=== PATIENT | female | born 1930 | race Caucasian/White ===

== ENCOUNTER 2017-02-10 07:51 | Inpatient (IN) | payer MEDICARE, OTHER ==
--- NOTE | 2017-02-10 08:12 | ED.PDOC ---
History of Present Illness - General Chief Complaint: Cardiovascular Problem Stated Complaint: weakness,heart fluttering Time Seen by Provider: 02/10/17 07:56 Source: patient, RN notes reviewed, Vital Signs reviewed, family Exam Limitations: no limitations - History of Present Illness Initial Comments: Patient reports that for the past couple of days she has felt weak, with no energy. Chest fluttering and a "lifeless" feeling in her lower chest. + SOB. Symptoms are worse when she is up moving around. Can't walk far without having to stop and rest. Symptoms get better with rest. Similar episode in the past when she was anemic requiring a blood transfusion. Timing/Duration: days, intermittent Severity: moderate Location: central Activities at Onset: activity Prior Chest Pain/Cardiac Workup: no prior chest pain, no prior cardiac workup Improving Factors: rest Worsening Factors: movement Nitro Today/Relief: no nitro taken today Aspirin Treatment Today: no aspirin today Associated Symptoms: shortness of breath, weakness Allergies/Adverse Reactions: Allergies NO KNOWN ALLERGY Allergy (Unverified 02/20/13 10:33) Home Medications: Ambulatory Orders NK [NK] 02/10/17 Review of Systems - Review of Systems Constitutional: States: weakness. Denies: chills, diaphoresis, fever EENTM: States: no symptoms reported Respiratory: States: short of breath. Denies: cough Cardiology: States: palpitations. Denies: chest pain, edema, syncope Gastrointestinal/Abdominal: States: no symptoms reported. Denies: abdominal pain, nausea Musculoskeletal: States: muscle pain - posterior shoulder - muscles spasms Skin: States: no symptoms reported Neurological: States: no symptoms reported. Denies: headache, numbness, paresthesia, pre-existing deficit, tingling, tremors Endocrine: States: no symptoms reported Hematologic/Lymphatic: States: no symptoms reported Past Medical History (General) - Patient Medical History Hx Seizures: No Hx Stroke: No Hx Asthma: No Hx of COPD: Yes Hx Cardiac Disorders: No Hx Congestive Heart Failure: No Hx Pacemaker: No Hx Hypertension: Yes Hx Diabetes: No Hx MRSA: No Surgical History: cholecystectomy - Vaccination History Hx Influenza Vaccination: No Hx Pneumococcal Vaccination: Yes - Social History Hx Tobacco Use: Yes Hx Alcohol Use: No Hx Substance Use: No Hx Physical Abuse: No Hx Emotional Abuse: No Family Medical History - Family History Mother Family History: Unknown Living Status: Hx Family Asthma: No Hx Family Congestive Heart Failure: No Hx Family Hypertension: No Hx Family Stroke: No Hx Cardiac Disease: No Hx Family Diabetes: No Hx Family Cancer: No Physical Exam - Physical Exam General Appearance: Alert, Comfortable, No apparent distress, Well Developed, Well Groomed, Well Hydrated, Well Nourished Neck: non-tender, supple Respiratory: chest non-tender, lungs clear, normal breath sounds, no respiratory distress, no accessory muscle use Cardiovascular/Chest: normal peripheral pulses, no edema, no gallop, no JVD, no murmur, irregularly irregular Peripheral Pulses: radial,right: 2+, radial,left: 2+, posterior tibialis,right: 2+, posterior tibialis,left: 2+ Gastrointestinal/Abdominal: normal bowel sounds, non tender, soft, no organomegaly, no pulsatile mass Extremity: normal range of motion, non-tender, normal inspection, no pedal edema Neurologic: no motor/sensory deficits, alert, normal mood/affect, oriented x 3 Skin Exam: normal color, warm/dry Progress - Results/Orders Results/Orders: Laboratory Tests 02/10/17 02/10/17 02/10/17 08:23 08:23 08:53 WBC 6.9 RBC 3.76 L Hgb 9.2 L Hct 28.7 L MCV 76.3 L MCH 24.4 L MCHC 32.2 L RDW 17.5 H Plt Count 377 MPV 9.9 Absolute Neuts (auto) 3.80 Absolute Lymphs (auto) 2.40 Absolute Monos (auto) 0.50 Absolute Eos (auto) 0.10 Absolute Basos (auto) 0.10 Neutrophils % 54.3 Lymphocytes % 34.6 Monocytes % 7.9 Eosinophils % 1.5 Basophils % 1.7 Sodium 139 Potassium 3.6 Chloride 106 Carbon Dioxide 25 Anion Gap 11.6 L BUN 10 Creatinine 0.74 BUN/Creatinine Ratio 13.5 Random Glucose 88 Serum Osmolality 276.0 Calcium 8.7 Total Bilirubin 1.3 H AST 19 ALT 13 Alkaline Phosphatase 43 Creatine Kinase 37 CK-MB (CK-2) 1.3 CK-MB (CK-2) % Not Reportable Troponin I 0.03 B-Natriuretic Peptide 394.0 H* Serum Total Protein 6.7 Albumin 4.1 Globulin 2.6 Albumin/Globulin Ratio 1.6 - EKG/XRAY/CT EKG: Tachy, Fibrillation, ST depression - in leads II, III, AvF, V4-6 XRAY: chest - mild bilateral effusions with central congestion Departure - Departure Clinical Impression: Atrial fibrillation with rapid ventricular response Time of Disposition: 09:50 Disposition: Admit Patient Condition: Fair Departure Forms: ED Discharge - Pt. Copy, Patient Portal Self Enrollment Home Medications: Ambulatory Orders NK [NK] 02/10/17 Decision To Admit - Decistion To Admit Decision to Admit Reason: Admit from ER - New onset Atrial Fib Decision to Admit Date: 02/10/17 Decision to Admit Time: 09:50
--- NOTE | 2017-02-10 08:35 | RAD ---
SINGLE VIEW CHEST X-RAY. 02/10/2017 8:09 AM CDT INDICATION: MAIN TECHNIQUE: Single frontal view of the chest was performed. COMPARISON: Chest x-ray 02/20/2013 CT abdomen pelvis 04/06/2015 FINDINGS: Hyperinflation lungs. Trace bilateral pleural effusions. Biapical scarring. Mildly prominent interstitial opacities. Bilateral prominent hilar vasculature. Curvilinear opacity overlying the left lower thorax was present in 2012 and appears to correspond to diaphragmatic eventration on CT. The cardiomediastinal silhouette is mildly enlarged, unchanged. Mild atherosclerosis of the thoracic arch. Osseous structures are unchanged. The visualized abdomen is unremarkable. IMPRESSION: Trace bilateral effusions with mild central venous congestion. Electronically signed by: Nima Rudolph MD 02/10/2017 8:34 AM CDT
--- NOTE | 2017-02-10 10:48 | HP ---
SUPERVISING PHYSICIAN: Jese Rodrigues M.D. CHIEF COMPLAINT: Palpitations. HISTORY OF PRESENT ILLNESS: Ms. Kapadia is an 86 year-old female patient that presented to the Emergency Room today complaining of the last several days in the past week she has felt weak and has noted that she has had palpitations in her chest that she associated with shortness of breath. She denies any chest pain. She notes that the symptom seem to worsen when she is up and moving around. EKG in the Emergency Department completed showed the patient to be in atrial fibrillation with a rapid ventricular heart rate of approximately 140. Hemodynamically she was stable with blood pressure initially of 113/65 satting 95% on room air with respirations of 16 with a temperature 96.9. Initial laboratory studies showed a normal troponin of 0.03 and electrolytes to be within normal limits. She had a slightly elevated BNP of 394 and was mildly anemic with hemoglobin of 9.2 and 28.7. Given the patient 's symptomology and onset of new atrial fibrillation with no history, the patient was given Cardizem in the Emergency Department for a total of 5 mg which resulted in good ventricular control after which time the patient remained hemodynamically stable. The patient is now to be admitted to the Medical/Surgical floor for continued treatment, evaluation and close cardiac telemetry monitoring. PAST MEDICAL HISTORY: 1. Hypertension not currently on medications. 2. Chronic obstructive pulmonary disease. 3. Diverticulosis. 4. Osteoporosis. PAST SURGICAL HISTORY: 1. Cholecystectomy in 2009. 2. Hysterectomy in 1963. 3. Bilateral cataract removal in 2010. 4. Oophorectomy in 2012 with a benign mass. CURRENT MEDICATIONS: She currently takes no home medications, but in the past she has taken: 1. Lisinopril 40 mg daily. 2. Fosamax 70 mg weekly. 3. Aspirin daily, however she has taken herself off all medications. ALLERGIES: NO KNOWN DRUG ALLERGIES. FAMILY HISTORY: Positive for coronary artery disease. SOCIAL HISTORY: The patient lives alone. She is a current smoker, approximately 1 pack per week. She denies any alcohol or illicit drug use. She is and lives in [place], [place]. REVIEW OF SYSTEMS: CONSTITUTIONAL: Denies any chills, fever or diaphoresis. HEENT: Denies any nasal congestion, headaches or vision changes. RESPIRATORY: Noted mild cough that is nonproductive. As noted in the history of present illness, shortness of breath with any exertional effort. CARDIOVASCULAR: As noted in the history of present illness, palpitations but denies any chest pains, edema or any syncopal episodes. GASTROINTESTINAL: Denies any abdominal pains, nausea, vomiting or bowel habit changes. GENITOURINARY: Denies any dysuria, hematuria or other urinary symptoms. NEUROLOGIC: Denies any headaches, numbness, paresthesias, tremors or syncopal episodes. PHYSICAL EXAMINATION: VITAL SIGNS: Initially in the Emergency Department showed pulse 128, blood pressure 122/67, respirations 20, satting 97% on room air. After 5 mg of Cardizem and prior to admission to the Medical/Surgical floor, the patient's pulse was 70 with blood pressure 105/66, respirations 18. She was satting 95% on room air with admission temperature 97.8. Admission weight 53.6 kg. GENERAL: On admission to the Medical/Surgical floor, the patient is calm. Appears to be in no acute distress. She is well nourished and well hydrated. HEENT: Tympanic membranes are clear bilaterally. Oropharynx is pink and moist without any lesions. NECK: No jugular venous distention. Neck is supple, non-tender. CHEST: Lungs are clear to auscultation bilaterally without any rhonchi, wheezing or rales. CARDIOVASCULAR: Slightly irregular rate and rhythm with no appreciable murmurs , gallops, or rubs. ABDOMEN: Soft, non-tender. Positive bowel sounds. EXTREMITIES: No clubbing, cyanosis or edema. NEUROLOGIC: Cranial nerves II-XII are grossly intact. Facial features are symmetrical. Extraocular movements are within normal limits. There is no nystagmus noted. There are no discernible motor or sensory deficits. She is alert and oriented times three. LABORATORY: White count on admission was 6.9, hemoglobin 9.2, hematocrit 28.7, platelet count 377,000. RBC indices indicate a microcytic hypochromic presentation. Differential is within normal limits. Coagulation studies show a normal PT and PTT. Chemistries show normal electrolytes with potassium 3.6, magnesium was pending. Liver functions just showed a slightly elevated total bilirubin of 1.3, BUN 10, creatinine 0.74. Initial cardiac enzymes showed troponin 0.03 with BNP of 394. Urinalysis: Dipstick showed 15 of ketones with trace amount of lysed blood, positive nitrites, negative leukocyte esterase. Microscopic revealed 2+ bacteria, otherwise was within normal limits. MICROBIOLOGY: Urine culture is pending. RADIOLOGY: Chest x-ray in the Emergency Department prior to admission showed trace of bilateral effusion which mild central venous congestion per radiology interpretation. 12-lead EKGs, initial showed atrial fibrillation with rapid ventricular response at 142. After 5 mg of Cardizem, the patient converted to a controlled ventricular rate. Still appears to be in atrial fibrillation. No ST changes or T wave inversions were noted to indicate ischemic event. ASSESSMENT: 1. New onset atrial fibrillation with rapid ventricular response, unknown duration with the patient reporting symptomology of over a week with the patient getting ventricular control with Cardizem. 2. Elevated BNP with no previously mentioned history of congestive heart failure with review of chart showing last echocardiogram in 2009 with an ejection fraction of 65%, however radiographic studies indicate some mild central vascular congestion and the patient has a significant amount of exertional dyspnea likely secondary to underlying new onset of atrial fibrillation with rapid ventricular response. 3. History of hypertension with the patient taking her self off medications. 4. Chronic obstructive pulmonary disease in a chronic smoker with evidence of exacerbation. 5. History of diverticulosis. 6. Osteoporosis. 7. Chronic tobacco abuse. 8. Urinary tract infection with cultures pending. 9. Anemia with a microcytic hypochromic presentation likely iron deficiency anemia with testing pending. PLAN: The patient will be admitted to the Medical/Surgical floor and started on telemetry for close monitoring. Given that she has a new onset of atrial fibrillation, she will need an echocardiogram at some point. Until then, will start her on rate control medicine to include beta karan with Metoprolol low dose as there is a concern for underlying congestive heart failure. She will be started on anticoagulation with Lovenox 1 mg per kg and a loading dose of Warfarin 5 mg, and close monitoring of her INR with bridging to Coumadin prior to discharge. In regards to the urinary tract infection, the patient has been started on Rocephin awaiting final culture results at which time will target antibiotic therapy accordingly. Will anticipate length of stay to be at least 2 to 3 days depending on the patient's ability to become therapeutic with her Warfarin. Once the patient is stable enough to be discharged, she will need close clinical followup with Dr. Orta and arrangements made for an echocardiogram to further rule out any ventricular thrombus. Will plan to repeat laboratory studies in the morning along with a PT and INR, CBC, CMP and cardiac enzymes again at 6 hours and in the morning. In regards to the anemia, will do occult bloods and monitor closely with a repeat CBC. The patient will need a workup in the outpatient setting. Will consider starting the patient on some iron therapy while in the hospital. Will plan to order laboratory studies for anemia panel to further investigate for iron deficiency anemia as well as get stool occult bloods times 3. Until then, will continue to monitor on telemetry closely and treat appropriately. #[id number] [facility]
[2017-02-10] MEDS ORDERED: WARFARIN SODIUM 5 MG TAB PO ONE (13:14)
[2017-02-10] MEDS ORDERED: ACETAMINOPHEN 325 MG TAB PO PRN (13:17)
[2017-02-10] MEDS ORDERED: SODIUM CHLORIDE 0.9% (FLUSH) 10 ML SYG IV PRN (13:17)
[2017-02-10] MEDS ORDERED: NITROGLYCERIN 0.4 MG 25 EA TAB SL PRN (13:17)
[2017-02-10] MEDS ORDERED: ASPIRIN (CHEWABLE) 81 MG TAB PO ONE (13:17)
[2017-02-10] MEDS ORDERED: ENOXAPARIN SODIUM 60 MG/0.6 ML SYG SUBCU ONE (13:19)
[2017-02-10] MEDS ORDERED: METOPROLOL TARTRATE 25 MG TAB ONE (13:19)
[2017-02-10] MEDS ORDERED: ASPIRIN TABLET 325 MG TAB ONE (13:23)
[2017-02-10] MEDS ORDERED: ASPIRIN EC 81 MG TAB PO ONE (13:25)
[2017-02-10] MEDS: METOPROLOL TARTRATE 25 MG TAB PO SCH ×2 (13:27→17:09)
[2017-02-10] MEDS: ENOXAPARIN SODIUM 60 MG/0.6 ML SYG SUBCU SCH ×2 (13:28→20:54)
[2017-02-10] MEDS: IV SET AND CAP CHANGE INJ INJ SCH (13:46)
[2017-02-10] MEDS ORDERED: SODIUM CHL 0.9% 50ML MIN-BAG+ 50 ML IVPB ONE (17:07)
[2017-02-10] MEDS ORDERED: cefTRIAXone SODIUM 1 GM VIAL ONE (17:07)
[2017-02-10] MEDS: cefTRIAXone SODIUM 1 GM in SODIUM CHL 0.9% 50ML MIN-BAG+ 50 ML IVPB SCH (17:09)
--- NOTE | 2017-02-10 18:04 | PCM.CORE ---
Physician DVT/VTE - Nurse DVT Assessment & Total Each Risk Factor Represents 3 Points: Age over 75 years Each Risk Factor Represents 1 Point: Hx of smoking past year Each Risk Factor is 1 Point: Serious Lung disease (pnemonia <1month, COPD, emphysema,etc) DVT Assessment Score: 5 - 5 or more Very High Risk Treatments: Early Ambulation *, Sequential Compression Device Pharmacological: Warfarin daily
[2017-02-10] MEDS: SODIUM CHLORIDE 0.9% (FLUSH) 10 ML SYG IV SCH (20:54)
[2017-02-11] MEDS ORDERED: TEMAZEPAM 15 MG CAP PO PRN (00:43)
[2017-02-11] MEDS: ENOXAPARIN SODIUM 60 MG/0.6 ML SYG SUBCU SCH (09:01)
[2017-02-11] MEDS ORDERED: diphenhydrAMINE HCL 50 MG/ML VIAL IV ONE (09:04)
[2017-02-11] MEDS ORDERED: ACETAMINOPHEN 325 MG TAB PO ONE (09:04)
[2017-02-11] MEDS ORDERED: FUROSEMIDE INJ 20 MG/2 ML VIAL IV ONE (09:04)
[2017-02-11] MEDS: SODIUM CHLORIDE 0.9% (FLUSH) 10 ML SYG IV SCH ×2 (09:05→21:00)
[2017-02-11] MEDS: ASPIRIN TABLET 325 MG TAB PO SCH (09:05)
[2017-02-11] MEDS ORDERED: SODIUM CHLORIDE 0.9% 500ML 500 ML IVS SCH (09:30)
--- NOTE | 2017-02-11 17:48 | CT ---
EXAM: Abdomen w/Contrast CLINICAL INDICATION: 86-year-old female with acute anemia. Follow-up CT 02/2015 2 cm lesion at the ileum. COMPARISON: 04/06/2015 CT abdomen and pelvis EXAMINATION: CT of the abdomen and pelvis was performed following intravenous administration of contrast. Oral contrast was not administered. Multiplanar reformatted images were provided. This exam was performed according to our departmental dose optimization program which includes use of automated exposure control, adjustment of the mA and/or kV according to patient size and/or use of iterative reconstruction technique. FINDINGS: Chest: Evaluation through the lung bases reveals no focal opacity, pleural effusion or pneumothorax. Heart size is within normal limits. No pericardial effusion. Abdomen and pelvis: The liver, pancreas, spleen, bilateral kidneys and bilateral adrenal glands are within normal limits. Surgical clips present at the level of the gallbladder fossa status post cholecystectomy. Minimal intra and extrahepatic biliary dilation, a finding which appears to be stable since the previous examination and may be seen in the setting of prior cholecystectomy. The vessels reveal dense atherosclerotic calcification otherwise patent and normal in caliber. No abdominopelvic lymph nodes are noted to be pathologically enlarged by CT measurement criteria. Severe diverticular disease without findings to suggest diverticulitis. The bowel is within normal limits with extensive contrast material and fecal debris present throughout the large bowel. There is no abnormal bowel wall thickness or bowel dilation. No free air. No free abdominopelvic fluid collections. The appendix is within normal limits. The osseous structures reveal diffuse demineralization and degenerative change. Multilevel endplate compression deformities stable in comparison to the previous examination dated 04/06/2015 present involving the T11 and L1 vertebral levels. No new compression deformity clearly identified. IMPRESSION: 1. No specific acute intra-abdominal findings are noted to suggest etiology of the patient's symptoms. 2. Severe diverticular disease without findings to suggest diverticulitis. 3. As clinically questioned, 2 cm lesion of the ileum is not clearly visualized on the current examination, however not visualized on the current examination secondary to lack of oral contrast. Further evaluation with small bowel follow-through, six six lower GI or direct visualization may be considered. Electronically signed by: Yenny Goodman MD 02/11/2017 5:47 PM CDT
[2017-02-11] MEDS ORDERED: SODIUM CHL 0.9% 50ML MIN-BAG+ 50 ML IVPB ONE (18:04)
[2017-02-11] MEDS ORDERED: cefTRIAXone SODIUM 1 GM VIAL ONE (18:04)
[2017-02-11] MEDS: cefTRIAXone SODIUM 1 GM in SODIUM CHL 0.9% 50ML MIN-BAG+ 50 ML IVPB SCH (18:24)
--- NOTE | 2017-02-11 21:53 | PN ---
DATE: 02/11/17 SUPERVISING PHYSICIAN: Jese Rodrigues M.D. SUBJECTIVE: The patient has been without any chest pains through the night. She continues to have shortness of breath. She has only had 1 episode of diarrhea and remains afebrile. OBJECTIVE: VITAL SIGNS: Temperature 98.2, pulse 54, blood pressure 104/62, respirations 18. She is satting 96% on room air. I's and O's show a positive balance of 270 with 420 in and 150 out. She has had 1 bowel movement. Weight 53.5 kg. GENERAL: The patient appears somewhat pale but she appears to be in no acute distress. Very pleasant. She is actually sitting on the edge of the bed and alert. CHEST: Lungs are clear to auscultation bilaterally. HEART: Regular rate and rhythm today with a bradycardic rhythm noted on bedside telemetry. There are no gallops or rubs noted. ABDOMEN: Soft, non-tender. Positive bowel sounds. EXTREMITIES: No clubbing, cyanosis or edema. NEUROLOGIC : She is alert and oriented times three. LABORATORY: CBC shows a slight leukocytosis compared to admission, it is up to 11.2. Hemoglobin has significantly dropped and is from 9.2 down to 7.8 as well as hematocrit dropped to 24.7. She continues to show a microcytic hypochromic RBC indices with platelet count 326,000. Differential today continues to be without a left shift. Reticulocyte count is pending. Coagulation studies this morning showed PT of 13.2 with INR 1.17. Chemistries shows normal electrolytes with potassium 3.7, BUN 12, creatinine 0.75, glucose 92, calcium 8.5. Iron studies indicated an iron of 216, TIBC was 282 with an elevated iron saturation of 76 with a ferritin of 261. Magnesium was 1.9 yesterday. She had a repeat troponin after admission and it did show an elevation up to 0.14, but the patient remained without any significant new complaints and had no chest pains reported. This morning, repeat cardiac enzymes again showed a continuation of elevation of troponin up to 0.35 but normal CPK and CK-MB. She did have 1 occult blood that was positive. A 12-lead EKG repeated this morning showed a sinus bradycardia. MICROBIOLOGY: Urine culture preliminary shows gram-negative rods. Stool culture is pending. Clostridium Difficile toxin A and B was negative for Clostridium Difficile GDH antigen and negative for Clostridium Difficile toxin A and B. RADIOLOGY: Abdominal CT with contrast is pending. ASSESSMENT: 1. Initial admission showed a new onset of atrial fibrillation with rapid ventricular response with the patient having been symptomatic over the last week converting to normal sinus rhythm after a single dose of Cardizem and a beta karan with elevated cardiac enzymes. 2. Elevated troponin felt to be secondary to ischemic event from new onset of atrial fibrillation and rapid ventricular response without any chest pains. 3. Elevated BNP with no mention of history of congestive heart failure with review of chart showing last echocardiogram was performed in 2009 that showed an ejection fraction of 65%, however radiographic studies on admission showed some mild central vascular congestion and the patient had significant exertional dyspnea likely secondary to underlying new onset of atrial fibrillation and rapid ventricular response now having been converted to normal sinus rhythm. 4. History of hypertension with the patient taking herself off medications. 5. Acute on chronic anemia with a microcytic hypochromic RBC presentation and laboratory studies indicating more likely an iron deficiency anemia, although the patient did have 1 positive occult blood. Will need to continue closely monitoring and the patient will be transfused 2 units of packed red blood cells. 6. Chronic obstructive pulmonary disease in a chronic smoker without evidence of exacerbation. 7. History of diverticulosis. 8. Osteoporosis. 9. Chronic tobacco abuse. 10. Urinary tract infection prior to arrival with current culture showing gram- negative rods. PLAN: Will plan to obtain a CT of the abdomen with contrast today. Review of past records showed that she has had similar episodes of anemia in [address] when she had a CT of the abdomen that indicated concerns for a possible small lesion in the ileum. Will continue to follow this with CT findings. She did have a GI consultation on that admission, however since she was discharged at that time she had not had any followup with any medical providers. She was started on anticoagulation last night with Lovenox and Warfarin. This will be stopped given that she has positive occult blood and severe acute anemia. She will remain on aspirin. Will plan to consult with Dr. Barlow tomorrow in regards to elevated troponin and new onset of atrial fibrillation to assist with further management. At some point, she will need an echocardiogram updated. Will plan to transfuse 2 units of packed red blood cells today and repeat a CBC and CMP in the morning. Will anticipate at least an additional 1 to 2 days of admission given the patient's anemia with need for transfusion and close monitoring, and likely at some point will need a GI consultation once again. Once the patient is found to be clinically stable, she can be discharged to continue with additional workups in regards to the anemia and ongoing iron deficiency workup. She will remain on telemetry and close monitoring. Until discharge, will treat appropriately. #[id number] [facility]
[2017-02-12] MEDS: ASPIRIN TABLET 325 MG TAB PO SCH (08:45)
[2017-02-12] MEDS: SODIUM CHLORIDE 0.9% (FLUSH) 10 ML SYG IV SCH ×2 (08:45→21:32)
[2017-02-12] MEDS ORDERED: PANTOPRAZOLE INJECTION 80 MG in SODIUM CHLORIDE 0.9% 100ML 80 ML IVPB ONE (11:59)
[2017-02-12] MEDS ORDERED: SODIUM CHLORIDE 0.9% 100ML 100 ML IVPB ONE (13:33)
[2017-02-12] MEDS ORDERED: PANTOPRAZOLE SODIUM IV 40 MG VIAL ONE (13:33)
[2017-02-12] MEDS ORDERED: SODIUM CHL 0.9% 50ML MIN-BAG+ 50 ML IVPB ONE (16:48)
[2017-02-12] MEDS ORDERED: cefTRIAXone SODIUM 1 GM VIAL ONE (16:48)
[2017-02-12] MEDS: cefTRIAXone SODIUM 1 GM in SODIUM CHL 0.9% 50ML MIN-BAG+ 50 ML IVPB SCH (16:58)
[2017-02-12] MEDS: SUCRALFATE 1 GM TAB PO SCH ×2 (16:58→21:32)
--- NOTE | 2017-02-12 19:27 | PN ---
DATE: 02/12/17 SUPERVISING PHYSICIAN: Blake Hill M.D. SUBJECTIVE: The patient has been without any chest pains. She got 2 units of packed cells without any complications. OBJECTIVE: VITAL SIGNS: Temperature 98.3, pulse 65, blood pressure 183/79, respirations 18, satting 93% on room air. I's and O's are not well maintained as she has been voiding without letting nurses know. She has had a couple of bowel movements with 1 positive occult blood. CHEST: Lungs are clear to auscultation. HEART: Regular rate and rhythm. ABDOMEN: Soft, non-tender. Positive bowel sounds. EXTREMITIES: No clubbing, cyanosis or edema. NEUROLOGIC : She is alert and oriented times three. LABORATORY: Today, white count has normalized to 9.4, hemoglobin has improved up to 11.1 from 7.8 and hematocrit up to 33.9 from 24.7 after transfusion of 2 units packed red blood cells. Platelet count remains within normal limits at 318. Chemistries today show normal electrolytes with potassium 3.6. EKG shows normal sinus rhythm. CONSULTATIONS: Dr. Barlow, Cardiology. Preliminary report from Dr. Barlow pending final dictation indicated that she had an echocardiogram done that showed an ejection fraction of approximately 65% with elevated PA pressures indicating some pulmonary hypertension. MICROBIOLOGY: Urine culture final shows Klebsiella pneumoniae sensitive to everything but Ampicillin. She had a Clostridium Difficile A and B that was negative and a stool culture that showed no enteric pathogens at 24 hours. ASSESSMENT: 1. New onset atrial fibrillation with rapid ventricular response having converted to normal sinus after a single dose of Cardizem continuing to remain in normal sinus since admission with elevated cardiac enzymes having an echocardiogram today showing an ejection fraction of approximately 65% with some elevated PA pressures indicating pulmonary hypertension. 2. Elevated troponin secondary to number 1 with the patient being without any chest pain since admission. 3. Elevated BNP likely secondary to new onset atrial fibrillation with current echocardiogram showing an ejection fraction of 65%. 4. History of hypertension and currently showing possibly some pulmonary hypertension based off of last current echocardiogram done today with the patient being currently not on any medications. 5. Acute on chronic anemia with microcytic hypochromic RBC presentation and laboratory studies indicating more likely an iron deficiency anemia although the patient did have 1 positive occult blood. Will need to continue to closely monitor with additional occult bloods and a gastrointestinal consultation. The patient did receive 2 units of packed red blood cells that did improve her hemoglobin and hematocrit. 6. Chronic obstructive pulmonary disease in a chronic smoker without evidence of exacerbation. 7. History of diverticulosis. 8. Osteoporosis. 9. Chronic tobacco abuse. 10. Urinary tract infection prior to arrival to the hospital with final culture showing Klebsiella pneumoniae sensitive to all but Ampicillin with the patient currently being on Rocephin. PLAN: Will continue to follow the patient closely today and anticipate hopefully getting a consultation with GI services in the morning. Will continue to monitor stools for blood. I will go ahead and start her on some Protonix 80 mg and Carafate awaiting consultation from GI services. She is not a candidate for anticoagulation at this point until we further rule out acute bleeding source. I did start her on beta karan low dose. Will need to monitor closely and adjust according to blood pressure and stable heart rate. Once the patient is clinically stable, certainly she can be discharged hopefully within the next day or 2 with continued need for followup in the outpatient setting. Until then, will continue to monitor closely and treat appropriately. #[id number] [facility]
[2017-02-13] MEDS: SUCRALFATE 1 GM TAB PO SCH ×4 (06:20→21:03)
[2017-02-13] MEDS: SODIUM CHLORIDE 0.9% (FLUSH) 10 ML SYG IV SCH ×2 (08:59→21:03)
[2017-02-13] MEDS: IV SET AND CAP CHANGE INJ INJ SCH (15:06)
[2017-02-13] MEDS ORDERED: SODIUM CHL 0.9% 50ML MIN-BAG+ 50 ML IVPB ONE (15:08)
[2017-02-13] MEDS ORDERED: cefTRIAXone SODIUM 1 GM VIAL ONE (15:09)
[2017-02-13] MEDS: cefTRIAXone SODIUM 1 GM in SODIUM CHL 0.9% 50ML MIN-BAG+ 50 ML IVPB SCH (16:41)
[2017-02-14] MEDS ORDERED: MAGNESIUM HYDROXIDE 30 ML UD PO ONE (01:17)
[2017-02-14] MEDS ORDERED: cloNIDine HCL 0.1 MG TAB PO ONE (01:44)
[2017-02-14] MEDS: SUCRALFATE 1 GM TAB PO SCH ×2 (06:55→12:12)
--- NOTE | 2017-02-14 08:08 | PN ---
SUPERVISING PHYSICIAN: Lucila Hill MD DATE: 02/13/17 SUBJECTIVE: The patient is lying in her hospital bed. She has no complaints of shortness of breath, chest pain, abdominal pain, nausea or vomiting. She has had no bloody stools, nor has she coughed up any blood. OBJECTIVE: VITAL SIGNS: Afebrile. Heart rate 60. Blood pressure 142/72. Respiratory rate 16. O2 saturation 93%. LUNGS: Clear to auscultation bilaterally. CARDIAC: Regular rate and rhythm. ABDOMEN: Soft, nontender, nondistended. Bowel sounds are positive. EXTREMITIES: No cyanosis, clubbing or edema. NEUROLOGIC: Awake, alert and oriented times three. LABORATORY: WBC 9.8, hemoglobin stable at 11.2 and hematocrit 34.1. Chemistries show sodium 140, potassium 4, chloride 108, carbon dioxide 28, BUN 14, creatinine 0.49. Urine culture shows Klebsiella pneumoniae presently pansensitive except for ampicillin. She is on ceftriaxone. All other labs and films have been reviewed via the EMR. ASSESSMENT: 1. New onset of atrial fibrillation with rapid ventricular response having converted to normal sinus rhythm after one dose of Cardizem, continues to remain in normal sinus rhythm since admission. She had elevated cardiac enzymes, but was seen by Dr. Barlow and showed an ejection fraction of 65% and some elevated PA pressures indicating pulmonary hypertension. 2. Elevated troponin secondary to #1 with the patient being without any chest pains since admission. 3. Elevated BNP likely secondary to new onset atrial fibrillation with current echocardiogram showing an ejection fraction of 65%. 4. History of hypertension and currently showing possibly some pulmonary hypertension based off of last current echocardiogram done today with the patient being currently not on any medications. 5. Acute on chronic anemia with microcytic/hypochromic RBC presentation. Laboratory studies indicate most likely an iron deficiency anemia, although and laboratory studies indicating more likely an iron deficiency anemia the patient did have one positive occult blood. The patient received 2 units of packed red blood cells that improved her hemoglobin and hematocrit. Dr. Harrell, GI doctor from [place], saw the patient today and we will be doing an EGD and colonoscopy in about 2 weeks. 6. Chronic obstructive pulmonary disease in a chronic smoker without evidence of exacerbation. 7. History of diverticulosis. 8. Osteoporosis. 9. Chronic tobacco abuse. 10. Urinary tract infection prior to arrival to the hospital with final culture showing Klebsiella pneumoniae sensitive to all but Ampicillin with the patient currently being on Rocephin. PLAN: I spoke with Dr. Harrell today. He did not think she had any acute bleeding at this time, but he was going to scope her in the next 2 weeks. He was concerned about her being placed on anticoagulants although he did say that an enteric coated baby aspirin will be fine, but need to clear it with Dr. Barlow. I spoke to Dr. Barlow and he agreed that it was okay for her to be on an enteric coated baby aspirin until after her scope. She will need to have close followup afterwards. I discussed this with her and we decided that I will start her on a baby aspirin tomorrow if her hemoglobin and hematocrit remained stable. She does not presently have a primary care physician in [place] , so she would like to see Eitan Ott. I will call him and get her scheduled to see him next week. She can have a CBC done prior to her office visit with him. She will see Dr. Harrell the week after that and then after her scope, she is to return to see Eitan Ott. At that time, pending her scope results, they can decide if she needs to be on some type of anticoagulant therapy. We will plan for discharge tomorrow if she has a stable hemoglobin and hematocrit and add baby aspirin. We may need to add some p.o. iron to her daily medications. I will discuss that with Dr. Hill in the morning. Otherwise, we will continue to monitor the patient closely and followup as needed. Dr. Hill is the collaborating physician and available for consultation. #[id number] [facility]
[2017-02-14] MEDS ORDERED: SODIUM CHL 0.9% 50ML MIN-BAG+ 0 ML IVPB ONE (08:29)
[2017-02-14] MEDS ORDERED: cefTRIAXone SODIUM 1 GM VIAL ONE (08:30)
[2017-02-14] MEDS: SODIUM CHLORIDE 0.9% (FLUSH) 10 ML SYG IV SCH (08:53)
[2017-02-14 09:50] VITALS: O2SAT 94
--- NOTE | 2017-02-14 10:26 | DS ---
SUPERVISING PHYSICIAN: Lucila Hill MD DISCHARGE DIAGNOSIS: 1. New onset of atrial fibrillation with rapid ventricular response having converted to normal sinus rhythm after one dose of Cardizem, continues to remain in normal sinus rhythm since admission. She had elevated cardiac enzymes, but was seen by Dr. Barlow and showed an ejection fraction of 65% and some elevated PA pressures indicating pulmonary hypertension. 2. Elevated troponin secondary to #1 with the patient being without any chest pains since admission. 3. Elevated BNP likely secondary to new onset atrial fibrillation with current echocardiogram showing an ejection fraction of 65%. 4. History of hypertension and currently showing possibly some pulmonary hypertension based off of last current echocardiogram done today with the patient being currently not on any medications. 5. Acute on chronic anemia with microcytic/hypochromic RBC presentation. Laboratory studies indicate most likely an iron deficiency anemia, although and laboratory studies indicating more likely an iron deficiency anemia the patient did have one positive occult blood. The patient received 2 units of packed red blood cells that improved her hemoglobin and hematocrit. Dr. Harrell, GI doctor from [place], saw the patient today and we will be doing an EGD and colonoscopy in about 2 weeks. 6. Chronic obstructive pulmonary disease in a chronic smoker without evidence of exacerbation. 7. History of diverticulosis. 8. Osteoporosis. 9. Chronic tobacco abuse. 10. Urinary tract infection prior to arrival to the hospital with final culture showing Klebsiella pneumoniae sensitive to all but Ampicillin with the patient currently being on Rocephin. HISTORY OF PRESENT ILLNESS: This is an 86-year-old female patient who came to the Emergency Room on the date of admission with complaints of palpitations. She had had them for several days prior to her admission and complained of weakness and shortness of breath, but no chest pain. Her symptoms worsened with exertion. EKG in the Emergency Room showed atrial fibrillation with a rapid ventricular heart rate of approximately 140. Her blood pressure was fairly stable in her Emergency Room and her O2 saturations were 95%. Initially , her BNP was 394, hemoglobin 9.2, hematocrit 28.7. Initial cardiac enzymes were negative. She was given one dose of Cardizem 5 mg in the Emergency Room and that resulted in good ventricular control and the patient remained hemodynamically stable. She was admitted to the hospital for continued treatment and evaluation and close cardiac telemetry. HOSPITAL COURSE: She saw Dr. Barlow while she was in the hospital. He did an echocardiogram of her that showed her to have an ejection fraction of 65%, but she did have some elevated PA pressures that indicated some pulmonary hypertension. He was wanting the patient to be anticoagulated due to her new onset of atrial fibrillation. At approximately the same time, her hemoglobin dropped to 7.8 and hematocrit to 24.7. Anemia studies were done that showed an iron deficiency anemia. She received 2 units of packed red blood cells and her hemoglobin and hematocrit have stabilized around 11 and 34 over the last two days. Dr. Harrell, box worker from [place], was consulted. He was reluctant to have her be on anticoagulation, but did agree to an aspirin. She is supposed to have an EGD as well as a colonoscopy in the next two weeks with him. At this point, her symptoms have stabilized. She has had only one complaint of palpitations and her heart rate went up into the 130s, but lasted less than one minute. She has had no complaints of chest pain, no abdominal pain, no blood stools, or bloody emesis. She will be discharged today. DISCHARGE PLAN: The patient will be discharged home in stable condition. She is to resume her previous diet as well as her previous activity. She has a followup appointment with TRUONG Dominguez, on 02/19/17. She will return to the hospital on 02/18/17 to have a CBC, BMP and BNP done at that time. I am also discharging her on some aspirin as recommended by Dr. Barlow and Dr. Harrell agreed that this would be a good compromise. She is to have her upper and lower GI scopes in two weeks. At that time, it can be discussed if anticoagulant therapy would be appropriate. I have spoken to Eitan Ott in regards to this patient's condition and status. She is to return to the hospital for any further complaints or contact Eitan Ott's office. DISCHARGE MEDICATIONS: 1. Enteric coated aspirin 81 mg. 2. Nitroglycerin. 3. Sucralfate. 4. Ciprofloxacin. 5. Metoprolol. 6. Fergon. Dr. Hill is the collaborating physician and available for consultation. #[id number] [facility]
[2017-02-14 11:11] VITALS: BP 160/81; TEMP 97.8
== END 2017-02-14 12:44 | disposition home or self-care (01) | DRG 309 ==
LOC: ER 07:51 → UNDOADMIN 07:52 → MS 07:52 → UNDOADMOB 10:47 → MS 10:47 → OBSVTOIN 02-11 10:47 → INTOOBSV 02-11 10:47 → UNDODISIN 02-14 12:44
PROVIDERS: ADMIT Family Medicine; ATTEND Nurse Practitioner Family
PROC: 30233N1 Transfusion of Nonautologous Red Blood Cells into Peripheral Vein, Percutaneous Approach (ICD-10-PCS; principal; 2017-02-11)
PROC: BW20YZZ Computerized Tomography (CT Scan) of Abdomen using Other Contrast (ICD-10-PCS; 2017-02-11)
DX: I48.91 Unspecified atrial fibrillation (principal); N39.0 Urinary tract infection, site not specified; I27.2 Other secondary pulmonary hypertension; J44.9 Chronic obstructive pulmonary disease, unspecified; D50.9 Iron deficiency anemia, unspecified; I10 Essential (primary) hypertension; M81.0 Age-related osteoporosis without current pathological fracture; B96.1 Klebsiella pneumoniae [K. pneumoniae] as the cause of diseases classified elsewhere; R74.8 Abnormal levels of other serum enzymes; R19.5 Other fecal abnormalities; K57.30 Diverticulosis of large intestine without perforation or abscess without bleeding; R19.7 Diarrhea, unspecified; F17.210 Nicotine dependence, cigarettes, uncomplicated; Z91.14 Patient's other noncompliance with medication regimen; Z79.82 Long term (current) use of aspirin; Z79.899 Other long term (current) drug therapy

== ENCOUNTER → 2017-02-18 | Outpatient (CLI) | payer MEDICARE, OTHER | END | disposition home or self-care (01) | LOC: LAB.O 09:15 | PROVIDERS: ATTEND Nurse Practitioner Acute Care | DX: I48.91 Unspecified atrial fibrillation (principal) ==

== ENCOUNTER 2017-03-10 13:25 | Emergency (ER) | payer MEDICARE, OTHER ==
[2017-03-10 13:37] VITALS: TEMP 98.4
--- NOTE | 2017-03-10 13:56 | ED.PDOC ---
History of Present Illness - General Chief Complaint: Neuro Symptoms/Deficits Stated Complaint: left hand numbness, dropping objects Time Seen by Provider: 03/10/17 13:48 Source: patient, RN notes reviewed, Vital Signs reviewed Exam Limitations: no limitations - History of Present Illness Initial Comments: Patient reports when she was getting up this morning her L arm did not want to work causing her to fall to the floor. This occured @~5:30am, 8 hours ago. 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 At the same time she had a R frontal BYNUM. No leg weakness but the top of her L foot was hurting. No similar symptoms in the past. No history of stroke. Reports she felt goofy earlier when this happened and some nausea a couple of hours ago. Timing/Duration: decreasing - over past 8 hours Severity: moderate Improving Factors: nothing Worsening Factors: nothing Associated Symptoms: nausea/vomiting Allergies/Adverse Reactions: Allergies NO KNOWN ALLERGY Allergy (Unverified 02/20/13 10:33) Home Medications: Ambulatory Orders Aspirin [Aspirin EC Low Dose] 81 mg PO DAILY #30 tab 02/14/17 Ciprofloxacin [Cipro] 500 mg PO BID #10 tab 02/14/17 Ferrous Gluconate [Fergon] 325 mg PO BID #60 tab 02/14/17 Metoprolol Tartrate 12.5 mg PO BID #60 tab 02/14/17 Sucralfate Tab [Carafate Tab] 1 gm PO ACHS #120 02/14/17 Review of Systems - Review of Systems Constitutional: States: no symptoms reported. Denies: chills, diaphoresis, fever, malaise EENTM: States: no symptoms reported, other - No speech difficulty. Denies: blurred vision, double vision Respiratory: States: no symptoms reported. Denies: short of breath Cardiology: States: no symptoms reported. Denies: chest pain Gastrointestinal/Abdominal: States: nausea. Denies: abdominal pain, diarrhea, vomiting Musculoskeletal: States: no symptoms reported Skin: States: other - Bruising L arm from fall Neurological: States: headache - R frontal, weakness - L arm. Denies: numbness , pre-existing deficit Endocrine: States: no symptoms reported Hematologic/Lymphatic: States: no symptoms reported Past Medical History (General) - Patient Medical History Hx Seizures: No Hx Stroke: No Hx Asthma: No Hx of COPD: Yes - smokes 1 PPD Hx Cardiac Disorders: No Hx Congestive Heart Failure: No Hx Pacemaker: No Hx Hypertension: Yes Hx Diabetes: No Hx Gastroesophageal Reflux: Yes Hx MRSA: No Surgical History: cholecystectomy, Hysterectomy - Vaccination History Hx Influenza Vaccination: No Hx Pneumococcal Vaccination: Yes - Social History Hx Tobacco Use: Yes Hx Alcohol Use: No Hx Substance Use: No Hx Physical Abuse: No Hx Emotional Abuse: No Family Medical History - Family History Mother Family History: Unknown Living Status: Hx Family Asthma: No Hx Family Congestive Heart Failure: No Hx Family Hypertension: No Hx Family Stroke: No Hx Cardiac Disease: No Hx Family Diabetes: No Hx Family Cancer: No Physical Exam - Physical Exam General Appearance: Alert, Comfortable, No apparent distress, Well Developed, Well Groomed, Well Hydrated, Well Nourished Eye Exam: bilateral normal ENT Exam: normal ENT inspection, hearing grossly normal, pharynx normal Neck: non-tender, full range of motion, supple, normal inspection Respiratory: chest non-tender, lungs clear, normal breath sounds, no respiratory distress, no accessory muscle use Cardiovascular/Chest: normal peripheral pulses, regular rate, rhythm, no edema, no gallop, no JVD, no murmur Peripheral Pulses: posterior tibialis,right: 2+, posterior tibialis,left: 2+ Gastrointestinal/Abdominal: normal bowel sounds, non tender, soft, no organomegaly, no pulsatile mass Extremities Exam: non-tender, normal range of motion, other - Bruising L arm 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, 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 Exam: normal hearing, normal speech, PERRL Motor/Sensory: no sensory deficit, no pronator drift, weak motor strength LUE - 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 on L otherwise equal throughout Skin Exam: normal color, warm/dry Progress - Results/Orders Results/Orders: Laboratory Tests 03/10/17 03/10/17 14:05 14:05 WBC 12.9 H RBC 3.75 L Hgb 9.4 L Hct 29.6 L MCV 79.0 L MCH 25.0 L MCHC 31.8 L RDW 18.5 H Plt Count 376 MPV 9.7 Absolute Neuts (auto) 6.90 H Absolute Lymphs (auto) 4.40 H Absolute Monos (auto) 1.00 H Absolute Eos (auto) 0.20 Absolute Basos (auto) 0.40 H Neutrophils % 53.5 Neutrophils % (Manual) 41.0 Lymphocytes % 34.4 Lymphocytes % (Manual) 32.0 Monocytes % 7.8 Monocytes % (Manual) 5.0 Eosinophils % 1.2 Basophils % 3.1 H Band Neutrophils 20.0 Eosinophils 1.0 Metamyelocytes 1.0 Nucleated RBCs 4.0 Hypochromia 3+ Platelet Estimate Normal Polychromasia 1+ Poikilocytosis 4+ Anisocytosis 4+ Target Cells 2+ Schistocytes 2+ Sodium 137 Potassium 3.9 Chloride 105 Carbon Dioxide 24 Anion Gap 11.9 L BUN 11 Creatinine 0.64 BUN/Creatinine Ratio 17.2 Random Glucose 98 Serum Osmolality 273.2 L Calcium 9.1 Total Bilirubin 0.8 AST 19 ALT 15 Alkaline Phosphatase 39 L Serum Total Protein 6.5 Albumin 3.9 Globulin 2.6 Albumin/Globulin Ratio 1.5 - EKG/XRAY/CT EKG: Sinus, nonspecific ST T wave Chg CT Ordered: Yes - Head: No acute intracranial findings per Radiologist Stroke Information - Onset of Symptoms Symptoms of Stroke: Weakness of limb Stroke Onset of Symptoms Date: 03/10/17 Stroke Onset of Symptoms Time: 05:30 - Contraindications Antithrombotic Contraindication: Treatment not indicated - Symptoms have improved, no stroke on CT Departure - Departure Clinical Impression: Anemia due to blood loss, chronic TIA (transient ischemic attack) Qualifiers: Transient cerebral ischemia type: unspecified Qualified Code(s): G45.9 - Transient cerebral ischemic attack, unspecified Time of Disposition: 14:41 Disposition: Discharge to Home or Self Care Condition: Fair Departure Forms: ED Discharge - Pt. Copy, Patient Portal Self Enrollment Instructions: DI for Transient Ischemic Attack Diet: resume usual diet Activity: increase activity as tolerated Referrals: ILEANA GARCIA IV CODING SPEC [Primary Care Provider] - 1-5 Days (Recheck CBC - Current Hg 9.4) Home Medications: Ambulatory Orders Aspirin [Aspirin EC Low Dose] 81 mg PO DAILY #30 tab 02/14/17 Ciprofloxacin [Cipro] 500 mg PO BID #10 tab 02/14/17 Ferrous Gluconate [Fergon] 325 mg PO BID #60 tab 02/14/17 Metoprolol Tartrate 12.5 mg PO BID #60 tab 02/14/17 Sucralfate Tab [Carafate Tab] 1 gm PO ACHS #120 02/14/17 Additional Instructions: Schedule follow up with GI for colonoscopy
--- NOTE | 2017-03-10 14:24 | CT ---
PROCEDURE: Head HISTORY: L arm weakness w/ R frontal BYNUM Indication: Same as above Comparison: None Technique: CT of the head was done without intravenous contrast was done in the orthogonal planes. This exam was performed according to our departmental dose-optimization program, which includes automated exposure control, adjustment of the mA and/or KV according to the patient's size and/or use of iterative reconstruction technique. FINDINGS: There is no intracranial hemorrhage, midline shift mass effect or acute focal infarct. There is prominence of the sylvian fissures and the cortical sulci reflecting age related volume loss. There is periventricular and deep white matter low attenuation, most likely related to small vessel white matter ischemic disease. If clinical concern exists regarding an acute ischemic/vascular pathology being responsible for patient's symptomatology, an MRI of the brain is more sensitive than the current study, in ruling out such a possibility. There is good díaz/white matter differentiation. There is no hydrocephalus. 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 Also note is made of cavum septa pellucida between the two lateral ventricles The mastoid air cells are unremarkable . The paranasal sinuses show changes of mild chronic sinusitis . There is no visualization of acute fractures involving the calvarium or the skull base. IMPRESSION: There is no acute intracranial abnormality. Age related and chronic involutional changes are seen. Electronically signed by: Sina Grayson MD 03/10/2017 2:24 PM CDT Workstation: [id number]
[2017-03-10 15:09] VITALS: BP 123/70; O2SAT 96
== END 2017-03-10 15:06 | disposition home or self-care (01) ==
LOC: ER 13:25
DX: G45.9 Transient cerebral ischemic attack, unspecified (principal); D50.0 Iron deficiency anemia secondary to blood loss (chronic); J44.9 Chronic obstructive pulmonary disease, unspecified; F17.200 Nicotine dependence, unspecified, uncomplicated; K21.9 Gastro-esophageal reflux disease without esophagitis; Z79.82 Long term (current) use of aspirin; Z79.899 Other long term (current) drug therapy

== ENCOUNTER → 2017-03-12 | Outpatient (CLI) | payer MEDICARE, OTHER ==
--- NOTE | 2017-03-13 11:37 | RAD ---
EXAM DESCRIPTION: Thoracic Spine,AP Lateral CLINICAL HISTORY: 86 years Female, PAIN IN SPINE IMPRESSION: Three views of the thoracic spine demonstrates two stable appearing wedge fractures of the lower thoracic spine. These are visualized on the CT of the abdomen and pelvis from 2016. There appear essentially stable. S-shaped scoliosis noted. Osteopenia. A few small anterior osteophytes are noted at multiple levels. Electronically signed by: Gerald Villalta MD 03/13/2017 11:38 AM CDT
--- NOTE | 2017-03-13 11:44 | RAD ---
EXAM DESCRIPTION: Ribs,Right 3 Views CLINICAL HISTORY: 86 years Female, PAIN IN SPINE IMPRESSION: Three views of the right wrist demonstrate no evidence of definitive fracture. Electronically signed by: Gerald Villalta MD 03/13/2017 11:44 AM CDT
== END | disposition home or self-care (01) ==
LOC: RAD 10:52
PROVIDERS: ATTEND Nurse Practitioner Family
DX: M54.6 Pain in thoracic spine (principal)

== ENCOUNTER → 2017-05-15 | Outpatient (CLI) | payer MEDICARE, OTHER | END | disposition home or self-care (01) | LOC: LAB.O 09:52 | PROVIDERS: ATTEND Nurse Practitioner Family | DX: I10 Essential (primary) hypertension (principal) ==